=== PATIENT | female | born 1980 | race African-American/Black ===

== ENCOUNTER 2016-07-13 19:32 | Emergency (ER) | payer OTHER ==
--- NOTE | ~2016-07-13 | CR63 ---
[facility]. [facility] A Service of [facility] RADIOLOGY TEXT RESULTS PATIENT: LISA CORONA LOCATION: SED : 84 UNIT #: [id number] AGE: [address]: PHYLICIA LEW SEX: F ORDER DR: [id number] [place] [id number] E MR#: [id number] Acc #: [id number] NAME: LISA CORONA : 1980 SEX: F STUDY DATE/TIME: 07/13/2016 20:13 UNIT: SED ROOM: STUDY DESCRIPTION: CR Chest 2 View Attending Physician: Phylicia Lew Primary Care Physician: No Primary Care Physician MEDICAL IMAGING REPORT This report is preliminary unless electronic signature is present. EXAM 2-view chest HISTORY Cough, congestion x1 week. COMPARISON 12/17/2011 FINDINGS PA and lateral examination of the chest upright shows a good expansion of the parenchyma with a normal distribution of the pulmonary vascularity. There is no indication of congestion, effusion, infiltrate, tumor, or nodular density. The pleural reflections and diaphragmatic contours are normal. The cardiac silhouette and mediastinal anatomy is within normal limits. IMPRESSION Normal chest. Dictated by... Tena Dominique M.D. THIS IS AN ELECTRONICALLY VERIFIED REPORT Tena Dominique M.D. at 07/14/2016 5:11 PM [place] TD: 07/14/2016 09:03 JOB #: [id number] MEDICAL IMAGING REPORT
[~2016-07-13 19:32] MED LIST: DICLOFENAC; METOPROLOL PO; NO MEDICATIONS; RISPERIDONE PO; ROBAXIN
[2016-07-13 19:33] LABS: INFLUENZA A NEG (NEG); INFLUENZA B NEG (NEG)
== END 2016-07-13 20:47 | disposition home or self-care (01) ==
LOC: SED 19:32
PROVIDERS: Physician Assistant
DX: J98.01 Acute bronchospasm (principal); J06.9 Acute upper respiratory infection, unspecified; I10 Essential (primary) hypertension; Z98.51 Tubal ligation status
CPT/HCPCS: 71020; 84703; 87804; 94640; 99283